=== PATIENT | female | born 1975 | race Caucasian/White ===

== ENCOUNTER 2017-07-31 11:52 | Emergency (ER) | payer OTHER ==
[2017-07-31 12:16] VITALS: BP 122/79
--- NOTE | 2017-07-31 16:27 | UC ---
Jillian Loredo Nilda, scribed for Atul Brewster MD on 07/31/17 at 1250 . FLU HPI - HPI Summary HPI Summary: This patient is a 42 year old F presenting to [facility] with a chief complaint of constant flu like symptoms for the past 3 days. The patient rates the pain 6/ 10 in severity. Symptoms aggravated and alleviated by nothing. Patient reports fever, chills, body aches, sore throat, and nonproductive cough. Patient states recent sick contact one week ago with who was positive flu. - History of Current Complaint Chief Complaint: UCRespiratory Stated Complaint: ACHES, VOMITING, AND DIARRHEA Time Seen by Provider: 07/31/17 12:27 Hx Obtained From: Patient Hx Last Menstrual Period: Jul 15, 2017 Onset/Duration: Sudden Onset, Lasting Days, Still Present Severity Initially: Moderate Pain Intensity: 6 Pain Scale Used: 0-10 Numeric Associated Signs & Symptoms: Positive: Fever, Myalgia, Cough, Sore Throat Related Hx: Possible Flu/Infectious Exposure - Allergy/Home Medications Allergies/Adverse Reactions: Allergies Allergy/AdvReac Type Severity Reaction Status Date / Time codeine Allergy Vomiting Verified 07/31/17 12:17 PMH/Surg Hx/FS Hx/Imm Hx Previously Healthy: Yes - Surgical History Surgical History: Yes Surgery Procedure, Year, and Place: gall bladder. - Family History Known Family History: Negative: Cardiac Disease, Hypertension, Diabetes - Social History Alcohol Use: None Substance Use Type: None Smoking Status (MU): Never Smoked Tobacco Review of Systems Constitutional: Fever, Chills ENT: Sore Throat Respiratory: Cough Musculoskeletal: Myalgia All Other Systems Reviewed And Are Negative: Yes Physical Exam Triage Information Reviewed: Yes Vital Signs: Initial Vital Signs Temp 98.3 F 07/31/17 12:13 Pulse 79 07/31/17 12:13 Resp 18 07/31/17 12:13 BP 122/79 07/31/17 12:13 Pulse Ox 97 07/31/17 12:13 Vital Signs Reviewed: Yes - Additional Comments VITAL SIGNS: Reviewed. GENERAL: Patient is a well developed and nourished F who is lying comfortable in the stretcher. Patient is not in any acute respiratory distress. HEAD AND FACE: Normocephalic EYES: PERRLA, EOMI x 2. EARS: Hearing grossly intact. NOSE: runny nose MOUTH: Pharyngeal erythema NECK: Supple, trachea is midline, no adenopathy, no JVD, no carotid bruit. CHEST: Symmetric, no tenderness at palpation LUNGS: Clear to auscultation bilaterally. No wheezing or crackles. CVS: Regular rate and rhythm, S1 and S2 present, no murmurs or gallops appreciated. ABDOMEN: Soft, non-tender. Bowel sounds are normal. No abdominal abnormal pulsations. EXTREMITIES: Full ROM in all major joints, no edema, no cyanosis or clubbing. NEURO: Alert and oriented x 3. No acute neurological deficits. Speech is normal and follows commands. SKIN: Dry and warm Flu Course/Dx - Course Course Of Treatment: This patient is a 42 year old F presenting to [facility] with a chief complaint of constant flu like symptoms for the past 3 days. The patient rates the pain 6/10 in severity. Symptoms aggravated and alleviated by nothing. Patient reports fever, chills, body aches, sore throat, and nonproductive cough. Patient states recent sick contact one week ago with who was positive flu. Influenza A and B are negative. Medications given. I discussed all the findings and test results with the patient. Patient was instructed to return to the urgent care or go to ER immediately if any of the symptoms return or worsens. Plan of care was discussed with the patient and patient understands and agrees. All questions were answered to patient satisfaction. There were no further complaints or concerns. The patient was found to have increase BP in UC. The patient will follow up with PCP for better control of BP. - Differential Dx/Diagnosis Differential Diagnosis/HQI/PQRI: Bronchitis, Broncholiolitis, Influenza, Pneumonia, Upper Respiratory Infection Provider Diagnoses: URI Discharge - Discharge Plan Condition: Stable Disposition: HOME Prescriptions: guaiFENesin ER TAB [Mucinex*] 600 mg PO BID #10 tab.er Ibuprofen TAB* [Motrin TAB* 600 MG] 600 mg PO Q8H PRN #30 tab PRN Reason: Pain Patient Education Materials: Upper Respiratory Infection (DC) Referrals: Katie Kahn MD [Primary Care Provider] - Additional Instructions: Take medications as instructed Increase your fluid intake Return to the UC if symptoms worsen FOLLOW UP WITH YOUR PRIMARY CARE PROVIDER WITHIN ONE WEEK FOR HIGH BLOOD PRESSURE NOTED TODAY. The documentation as recorded by the Jillian smith Nilda accurately reflects the service I personally performed and the decisions made by me, Atul Brewster MD.
== END 2017-07-31 13:00 | disposition home or self-care (01) ==
LOC: UCEAST 11:52
DX: J06.9 Acute upper respiratory infection, unspecified (principal)
CPT/HCPCS: 87502; 99212; G0463

== ENCOUNTER 2018-09-05 12:47 | Emergency (ER) | payer BC, OTHER ==
--- NOTE | 2018-09-05 12:58 | UC ---
FLU HPI - HPI Summary HPI Summary: 43 yo female presents with fever, fatigue, dry cough, sinus pain/pressure/ congestion, and body aches since yesterday. She took an OTC cough syrup for her cough with no relief. She reports having a fever last night of 101F. She works at [employer] and says that she has interacted with many sick people. She does not smoke. Denies sore throat, SOB, chest pain, abdominal pain, n/v. - History of Current Complaint Stated Complaint: SORE THROAT COUGH EAR PAIN Time Seen by Provider: 09/05/18 12:57 Hx Obtained From: Patient Hx Last Menstrual Period: Jul 15, 2017 Onset/Duration: Sudden Onset Severity Currently: Moderate Severity Initially: Moderate Pain Intensity: 7 Pain Scale Used: 0-10 Numeric - Allergy/Home Medications Allergies/Adverse Reactions: Allergies Allergy/AdvReac Type Severity Reaction Status Date / Time codeine Allergy Vomiting Verified 09/05/18 13:00 Home Medications: Home Medications Dm/PE/Acetaminophen/Doxylamine [Cold Multi-Symptom Night Liq] 237 ml PO ONCE [History Confirmed 09/05/18] PMH/Surg Hx/FS Hx/Imm Hx - Additional Past Medical History Additional PMH: None - Surgical History Surgical History: Yes Surgery Procedure, Year, and Place: gall bladder. - Family History Known Family History: Negative: Cardiac Disease, Hypertension, Diabetes - Social History Occupation: Employed Full-time Lives: With Family Alcohol Use: None Substance Use Type: None Smoking Status (MU): Never Smoked Tobacco Review of Systems All Other Systems Reviewed And Are Negative: Yes Constitutional: Positive: Fever, Fatigue, Other - Body aches Skin: Positive: Negative Eyes: Positive: Negative ENT: Positive: Ear Ache, Nasal Discharge, Sinus Congestion, Sinus Pain/ Tenderness Respiratory: Positive: Cough Cardiovascular: Positive: Negative Gastrointestinal: Positive: Negative Neurovascular: Positive: Negative Neurological: Positive: Negative Psychological: Positive: Negative Physical Exam - Summary Physical Exam Summary: GENERAL: NAD. WDWN. No pain distress. SKIN: No rashes, sores, lesions, or open wounds. HEENT: Head: AT/NC Eyes: EOM intact. Conjunctiva clear without inflammation or discharge. Ears: Hearing grossly normal. TMs intact, no bulging, erythema, or edema. Nose: Nasal mucosa pink and moist. TTP maxillary and frontal sinus. Throat: Posterior oropharynx without exudates, erythema, or tonsillar enlargement. Uvula midline. NECK: Supple. Nontender. No lymphadenopathy. CHEST: CTAB. No r/r/w. No accessory muscle use. Breathing comfortably and in no distress. CV: RRR. Without m/r/g. Pulses intact. Cap refill <2seconds NEURO: Alert. PSYCH: Age appropriate behavior. Triage Information Reviewed: Yes Vital Signs: Vital Signs: Temp Pulse Resp BP Pulse Ox 100.6 F 101 20 128/80 97 09/05/18 13:02 09/05/18 13:02 09/05/18 13:02 09/05/18 13:37 09/05/18 13:02 Laboratory Tests 09/05/18 13:13 Influenza A (Rapid) Positive A Vital Signs Reviewed: Yes Flu Course/Dx - Course Course Of Treatment: POC flu positive. CXR: IMPRESSION: NO EVIDENCE FOR ACTIVE CARDIOPULMONARY DISEASE. Rx for tamiflu. Advised to rest and take tylenol/ibuprofen for discomfort. - Differential Dx/Diagnosis Provider Diagnosis: Influenza Discharge - Sign-Out/Discharge Documenting (check all that apply): Patient Departure All imaging exams completed and their final reports reviewed: Yes - Discharge Plan Condition: Stable Disposition: HOME Prescriptions: Oseltamivir CAP* [Tamiflu CAP*] 75 mg PO BID #10 cap Patient Education Materials: Influenza (ED) Forms: *Work Release Referrals: Katie Kahn MD [Primary Care Provider] - Additional Instructions: If you develop a fever, shortness of breath, chest pain, new or worsening symptoms - please call your PCP or go to the ED. Your blood pressure was high at todays visit. Please see your primary provider within 4 weeks for recheck and re-evaluation. 1) Rest and drink plenty of fluids 2) May take tylenol/ibuprofen for any fever or discomfort - Billing Disposition and Condition Condition: STABLE Disposition: Home
[2018-09-05 13:18] LABS: Influenza A Molecular POSITIVE (Negative)
[2018-09-05 13:37] VITALS: BP 128/80
== END 2018-09-05 13:40 | disposition home or self-care (01) ==
LOC: UCEAST 12:47
DX: J11.1 Influenza due to unidentified influenza virus with other respiratory manifestations (principal); Z88.5 Allergy status to narcotic agent
CPT/HCPCS: 71046; 99212; G0463